=== PATIENT | female | born 1995 | race Caucasian/White ===

== ENCOUNTER 2022-09-08 10:44 | Emergency (ER) | payer BC ==
[~2022-09-08] VITALS: Ht 172.7 cm; Wt 56.7 kg
--- NOTE | 2022-09-08 10:54 | NUR ---
Dr dodd at the bedside for MSE.
--- NOTE | 2022-09-08 11:07 | NUR ---
Pt back from Ct scan, awake a/ox4. Per electrical test technician pt had a clonic (possible) seizure. Pt had no postectal symptoms and re -gain concousness right away. Dr Zheng made aware and reported observation of electrical test technician. Seizure precution implanted.
[2022-09-08 11:15] LABS: HEMATOCRIT 38.9 % (31.2-41.9); MEAN CORPUSCULAR HEMOGLOBIN 31.6 uug (24.7-32.8); MEAN CORPUSCULAR VOLUME 93.3 fL (75.5-95.3); PLATELET COUNT (AUTO) 216 K/uL (179-408)
[2022-09-08 11:26] LABS: CARBON DIOXIDE 32 mmol/L (21-32); CHLORIDE 104 mmol/L (98-107); CREATININE 0.9 mg/dL (0.6-1.3); GLUCOSE 94 mg/dL (74-106); POTASSIUM 4.2 mmol/L (3.5-5.1); UREA NITROGEN, BLOOD 7 mg/dL (7-18)
[2022-09-08 11:34] LABS: ALANINE AMINOTRANSFERASE 21 U/L (14-59); ALKALINE PHOSPHATASE 66 U/L (50-136); ASPARTATE AMINOTRANSFERASE 15 U/L (15-37); BILIRUBIN,DIRECT 0.1 mg/dL (0.0-0.2); BILIRUBIN,TOTAL 0.5 mg/dL (0.2-1.0); TOTAL PROTEIN, SERUM 6.8 g/dL (6.4-8.2)
[2022-09-08 12:19] LABS: *URINE HCG, QUAL NEGATIVE (NEGATIVE)
[2022-09-08 12:27] LABS: *BILIRUBIN,URIN NEGATIVE (NEGATIVE); *BLOOD, URINE NEGATIVE (NEGATIVE); *CLARITY,URINE CLEAR (CLEAR); *COLOR,URINE YELLOW (YELLOW); *KETONES,URINE NEGATIVE (NEGATIVE); *UROBILINOGEN,URINE 0.2 E.U./dl (NORMAL); LEUKOCYTE ESTERASE ,URINE NEGATIVE (NEGATIVE); NITRITE, URINE NEGATIVE (NEGATIVE); UGLUCOSE NEGATIVE (NEGATIVE)
[2022-09-08] MEDS ORDERED: LAMO100T17 MT (12:49)
[2022-09-08] MEDS ORDERED: LITH300C4 MT (12:49)
[2022-09-08] MEDS ORDERED: METR-147 MT (12:49)
--- NOTE | 2022-09-08 12:55 | NUR ---
Lunch provided, pt ate w/ great appettite. Denies dizziness.
--- NOTE | 2022-09-08 14:10 | NUR ---
Spoke to [employer] shoe caser, awaiting for update and possible placement.
--- NOTE | 2022-09-08 15:36 | NUR ---
Patient is resting comfortably in bed with eyes closed, NAD noted at this time.
--- NOTE | 2022-09-08 21:00 | NUR ---
Patient discharged to home in stable condition. Written and verbal after care instructions given. Patient verbalizes understanding of instructions. Stressed follow up or return to ER for worsening s/s.
[2022-09-08 21:02] VITALS: BP 105/73
== END 2022-09-08 21:03 | disposition home or self-care (01) ==
LOC: ER 10:44
DX: R56.9 Unspecified convulsions (principal); R00.1 Bradycardia, unspecified; Z20.822 Contact with and (suspected) exposure to COVID-19
CPT/HCPCS: 36415; 70450; 71045; 83735; 84484; 84703; 85025; 93005; A4663